=== PATIENT | male | born 1990 | race Caucasian/White ===

== ENCOUNTER 2021-04-04 17:48 | Emergency (ER) | payer MEDICAID ==
[2021-04-04] MEDS ORDERED: Ibuprofen 400 MG Tab PO ONE (19:41)
--- NOTE | 2021-04-04 19:41 | EDM.PDOC ---
ED HPI GENERAL MEDICAL PROBLEM - General Chief Complaint: ENT Problem Stated Complaint: INFECTION IN NASAL PASSAGE Time Seen by Provider: 04/04/21 19:20 Source of Information: Reports: Patient, Family (Akin), RN, RN Notes Reviewed History Limitations: Reports: No Limitations - History of Present Illness INITIAL COMMENTS - FREE TEXT/NARRATIVE: Samir is a 30 y/o male who presents to the ED via personal vehicle with complaints of pain to left anterior nare. The patient reports the pain began approximately seven days ago and progressively worsened in that time. Additio mikal, he has noted redness, swelling, and drainage to sore on the anterior nare. He has trial his normal antihistamines and ibuprofen, neither of which has offered him relief of symptoms. The patient denies history of MRSA, but does note his akin works in a hospital setting. Left Nose Pain Score (Numeric/FACES): 5 - Related Data Allergies Allergy/AdvReac Type Severity Reaction Status Date / Time Sulfa (Sulfonamide Allergy Hives Verified 04/04/21 17:58 Antibiotics) Home Meds: Home Meds . [No Known Home Meds] 04/04/21 [History] Past Medical History HEENT History: Reports: Impaired Vision Cardiovascular History: Reports: None Respiratory History: Reports: None Gastrointestinal History: Reports: None Genitourinary History: Reports: None Musculoskeletal History: Reports: None Neurological History: Reports: None Psychiatric History: Reports: None Endocrine/Metabolic History: Reports: None Hematologic History: Reports: None Immunologic History: Reports: None Oncologic (Cancer) History: Reports: None Dermatologic History: Reports: None - Infectious Disease History Infectious Disease History: Reports: None - Past Surgical History Head Surgeries/Procedures: Reports: None Social & Family History - Family History Family Medical History: No Pertinent Family History - Tobacco Use Tobacco Use Status *Q: Never Tobacco User Second Hand Smoke Exposure: No - Caffeine Use Caffeine Use: Reports: Soda - Recreational Drug Use Recreational Drug Use: No ED ROS ENT - Review of Systems Review Of Systems: Comprehensive ROS is negative, except as noted in HPI. ED EXAM, ENT - Physical Exam Exam: See Below Exam Limited By: No Limitations General Appearance: Alert, Anxious, Mild Distress (Pain to left nare) Eye Exam: Bilateral Eye: EOMI, Normal Inspection, PERRL (3mm) Ears: Normal External Exam, Normal Canal, Hearing Grossly Normal, Normal TMs Nose: Clear Rhinorrhea, Nasal Discharge, Nasal Swelling, Nasal Tenderness, Other (Open sore to anterior, superior aspect of left nare). No: Nasal Ecchymosis, Foreign Body, Active Bleeding, Injected Turbinates Mouth/Throat: Normal Inspection, Normal Gums, Normal Lips, Normal Oropharynx, Normal Teeth Head: Atraumatic, Normocephalic Neck: Normal Inspection, Supple, Non-Tender, Full Range of Motion. No: Lymphadenopathy (L), Lymphadenopathy (R) Respiratory/Chest: No Respiratory Distress, Lungs Clear, Normal Breath Sounds, No Accessory Muscle Use, Chest Non-Tender Cardiovascular: Normal Peripheral Pulses, Regular Rate, Rhythm, No Edema, No Gallop, No JVD, No Murmur, No Rub Neurological: Alert, Oriented, CN II-XII Intact, Normal Cognition, Normal Gait, No Motor/Sensory Deficits Psychiatric: Normal Affect, Normal Mood Skin: Warm, Dry, Intact, Erythema (To nose), Increased Warmth (To nose), Wound/Incision (To anterior, superior aspect of left nare) Lymphatic: No Adenopathy Course - Vital Signs Last Recorded V/S: Last Vital Signs Temp 98.3 F 04/04/21 17:58 Pulse 74 04/04/21 17:58 Resp 18 04/04/21 17:58 BP 131/93 H 04/04/21 17:58 Pulse Ox 99 04/04/21 17:58 - Orders/Labs/Meds Meds: Medications Discontinued Medications Generic Name Dose Route Start Last Admin Trade Name Freq PRN Reason Stop Dose Admin Ibuprofen 400 mg 04/04/21 19:41 04/04/21 19:48 Ibuprofen 400 Mg Tab PO 04/04/21 19:42 400 mg ONETIME ONE Administration Mupirocin 1 gm 04/04/21 19:42 04/04/21 19:48 Mupirocin Oint 22 Gm Tube TOP 04/04/21 19:43 1 % ONETIME ONE Administration - Re-Assessments/Exams Free Text/Narrative Re-Assessment/Exam: 04/05/21 Ibuprofen and mupirocin administered. Findings of examination reviewed with patient and fiance. Will treat infected nare sore with mupirocin and OTC analgesics. Discussed supportive cares as well as red flag signs and symptoms which would warrant reevaluation. Patient and fiance verbalized understanding and agreement with the plan of care. Departure - Departure Time of Disposition: 19:36 Disposition: Home, Self-Care 01 Condition: Good Clinical Impression: Rhinosinusitis Infected nasal abrasion Qualifiers: Encounter type: initial encounter Qualified Code(s): S00.31XA - Abrasion of nose, initial encounter - Discharge Information *PRESCRIPTION DRUG MONITORING PROGRAM REVIEWED*: Not Applicable *COPY OF PRESCRIPTION DRUG MONITORING REPORT IN PATIENT DESI: Not Applicable Forms: ED Department Discharge Additional Instructions: Rx: Mupirocin 1.) Apply to inner nare two times a day for 10 days; continue even as symptoms improve. 2.) Avoid tearing away scabs from the nare area. 3.) Follow up with primary care provider in 3-5 days with persistent or worsening symptoms. 4.) You may take ibuprofen (Advil/Motrin) 400mg every six hours, as pain and swelling persists. You may also take acetaminophen (Tylenol) 650mg every six hours, as pain persists. You may stagger these medications so you are receiving a dose every three hours. Sepsis Event Note (ED) - Evaluation Sepsis Screening Result: No Definite Risk
[2021-04-04] MEDS ORDERED: Mupirocin Oint 22 GM Tube TOP ONE (19:42)
== END 2021-04-04 19:52 | disposition home or self-care (01) ==
LOC: DL.ED 17:48 → EEVIPCON 17:48 → DL.ED 19:52
DX: S00.31XA Abrasion of nose, initial encounter (principal); J32.9 Chronic sinusitis, unspecified; Z88.2 Allergy status to sulfonamides; X58.XXXA Exposure to other specified factors, initial encounter
CPT/HCPCS: 87070; 87077; 87186; 99283; A9270

== ENCOUNTER 2023-11-09 06:17 | Day surgery (SDC) | payer MEDICAID ==
[2023-11-09] MEDS ORDERED: Dextrose 5%-0.45% NaCl 1,000 ML IV SCH (06:30)
[2023-11-09] MEDS ORDERED: fentaNYL 100 MCG/2 ML SDV ONE (07:04)
[2023-11-09] MEDS ORDERED: Midazolam 1 MG/ML 2 ML SDV ONE (07:04)
[2023-11-09] MEDS ORDERED: fentaNYL 100 MCG/2 ML SDV IV ONE ×3 (07:04→07:38)
[2023-11-09] MEDS ORDERED: Midazolam 1 MG/ML 2 ML SDV IV ONE ×3 (07:04→07:39)
== END 2023-11-09 09:30 | disposition home or self-care (01) ==
LOC: DL.ENDO 06:17
PROVIDERS: ATTEND Internal Medicine Gastroenterology
DX: K20.90 Esophagitis, unspecified without bleeding (principal); R07.9 Chest pain, unspecified
CPT/HCPCS: 87077; J2250; J3010; J7042